=== PATIENT | male | born 1995 | race African-American/Black ===

== ENCOUNTER 2018-06-26 14:50 | Emergency (ER) | payer MEDICARE ==
[2018-06-26] MEDS ORDERED: DEXAMETHASONE SOD PHOSPHATE 10MG/ML 1ML VIAL ONE (15:16)
[2018-06-26] MEDS ORDERED: PROCHLORPERAZINE EDISYLATE 10 MG/2 ML VIAL ONE (15:17)
[2018-06-26] MEDS ORDERED: DIPHENHYDRAMINE HCL 25 MG CAPSULE ONE (15:17)
== END 2018-06-26 16:23 | disposition home or self-care (01) ==
LOC: EDH 14:50
DX: R51 Headache (principal)
CPT/HCPCS: 96374; 96375; 99283; J0780; J1100; Q0163